=== PATIENT | female | born 1955 | race Caucasian/White ===

== ENCOUNTER 2018-08-01 11:03 | Inpatient (IN) | payer MEDICAID ==
[2018-08-01] MEDS: ASPIRIN 81 MG TAB PO (13:15)
[2018-08-01] MEDS: SOD CHLORIDE 0.9% 1,000 ML IV (13:15)
[2018-08-01 13:16] LABS: ADD MAN DIFF? NO
[2018-08-01 13:18] LABS: WHITE BLOOD COUNT 5.7 10^3/ul (4.8-10.8)
[2018-08-01 13:18] LABS: BASOPHIL # 0.1 10^3/ul (0.0-0.1); BASOPHILS % 0.9 % (0.0-2.0); EOSINOPHILS % 0.5 % (0.0-7.0); HEMATOCRIT 43.9 % (37.0-47.0); HEMOGLOBIN 14.8 g/dl (12.0-16.0); LYMPHOCYTES # 1.5 10^3/ul (0.8-2.9); LYMPHOCYTES % 26.2 % (15.0-51.0); MEAN CORPUSCULAR HEMOGLOBIN 29.7 pg (29.0-33.0); MEAN CORPUSCULAR HGB CONC 33.7 g/dl (32.0-37.0); MEAN CORPUSCULAR VOLUME 88.2 fl (82.0-101.0); MEAN PLATELET VOLUME 10.5 fl (7.4-10.4); MONOCYTE # 0.6 10^3/ul (0.3-0.9); MONOCYTES % 10.6 % (0.0-11.0); NEUTROPHIL # 3.5 10^3/ul (1.6-7.5); NEUTROPHILS % 61.5 % (39.0-77.0); PLATELET COUNT 234 10^3/UL (140-415); RED BLOOD COUNT 4.98 10^6/ul (4.20-5.40)
[2018-08-01 13:21] LABS: ADD UMIC YES; UR ASCORBIC ACID NEGATIVE (NEGATIVE); UR BILIRUBIN (Dip) NEGATIVE (NEGATIVE); UR BLOOD (Dip) 1+ mg/dL (NEGATIVE); UR CLARITY SLIGHTLY CLOUDY (CLEAR); UR COLOR YELLOW (YELLOW); UR GLUCOSE (Dip) NEGATIVE (NEGATIVE); UR KETONES (Dip) NEGATIVE (NEGATIVE); UR LEUKOCYTE ESTERASE (Dip) NEGATIVE Leu/ul (NEGATIVE); UR MUCUS FEW /HPF (NONE SEEN); UR NITRITE (Dip) NEGATIVE (NEGATIVE); UR RBC 0 /HPF (0-5); UR SPECIFIC GRAVITY (Dip) 1.019 (1.003-1.030); UR TOTAL PROTEIN (Dip) NEGATIVE (NEGATIVE); UR UROBILINOGEN (Dip) NEGATIVE (NEGATIVE); UR WBC 2 /HPF (0-5)
[2018-08-01] MEDS: DILTIAZEM 25 MG INJ IV (13:22)
[2018-08-01 13:40] LABS: INR 0.95; PROTIME 12.8 Sec (11.9-14.9)
[2018-08-01 13:41] LABS: PARTIAL THROMBOPLASTIN TIME 26.4 Sec (23.0-35.0)
[2018-08-01] MEDS: FAMOTIDINE 20 MG TAB PO (13:43)
[2018-08-01 13:47] LABS: ALANINE AMINOTRANSFERASE 27 IU/L (13-69); ALBUMIN 4.6 g/dl (3.3-4.9); ALBUMIN/GLOBULIN RATIO 1.27; ALKALINE PHOSPHATASE 80 IU/L (42-121); ANION GAP 8 (5-13); ASPARTATE AMINO TRANSFERASE 36 IU/L (15-46); BILIRUBIN,INDIRECT 0.4 mg/dl (0-1.1); BILIRUBIN,TOTAL 0.4 mg/dl (0.2-1.3); BLOOD UREA NITROGEN 16 mg/dl (7-20); CALCIUM 9.9 mg/dl (8.4-10.2); CARBON DIOXIDE 26 mmol/L (21-31); CHLORIDE 106 mmol/L (97-110); CREATININE 0.61 mg/dl (0.44-1.00); Estimated GFR > 60 mL/min (>60); GLUCOSE 109 mg/dl (70-220); LIPASE 155 U/L (23-300); POTASSIUM 4.4 mmol/L (3.5-5.1); SODIUM 140 mmol/L (135-144); TOTAL PROTEIN 8.2 g/dl (6.1-8.1)
[2018-08-01 13:57] LABS: TROPONIN-I 0.035 ng/ml (0.000-0.120)
[2018-08-01] MEDS ORDERED: MAGNESIUM HYDROXIDE 30ML CUP PO (15:30)
[2018-08-01] MEDS ORDERED: ONDANSETRON 4 MG INJ IV ×2 (15:30)
[2018-08-01] MEDS ORDERED: NACL 0.9% 3 ML SYG IV (15:30)
[2018-08-01] MEDS ORDERED: ACETAMINOPHEN 325 MG TAB PO (15:30)
[2018-08-01] MEDS ORDERED: NITROGLYCERIN (SL) 0.4 MG TAB SL (15:30)
[2018-08-01] MEDS ORDERED: DOCUSATE SODIUM 100 MG CAP PO (15:30)
[2018-08-01] MEDS ORDERED: HYDROCODONE/APAP (5/325) TAB PO (15:30)
[2018-08-01] MEDS ORDERED: ENOXAPARIN 100 MG/ML SYG SC (16:00)
[2018-08-01 16:27] LABS: HEMOGLOBIN A1C 5.5 % (0-5.9)
[2018-08-01] MEDS ORDERED: DILTIAZEM-D5W 125MG/125ML DRIP 125 ML IV (18:30)
[2018-08-01] MEDS: DILTIAZEM (CD) 120 MG CAP PO (18:41)
[2018-08-01] MEDS ORDERED: METOPROLOL 5 MG INJ IV ×2 (21:00)
[2018-08-01] MEDS: ACETAMINOPHEN 325 MG TAB PO (23:30)
[2018-08-02] MEDS: PANTOPRAZOLE (EC) 40 MG TAB PO (05:53)
[2018-08-02 06:19] LABS: ADD MAN DIFF? NO
[2018-08-02 06:28] LABS: WHITE BLOOD COUNT 5.6 10^3/ul (4.8-10.8)
[2018-08-02 06:28] LABS: BASOPHILS % 0.7 % (0.0-2.0); EOSINOPHILS # 0.1 10^3/ul (0.0-0.5); EOSINOPHILS % 1.1 % (0.0-7.0); HEMATOCRIT 43.8 % (37.0-47.0); HEMOGLOBIN 14.5 g/dl (12.0-16.0); LYMPHOCYTES % 36.4 % (15.0-51.0); MEAN CORPUSCULAR HEMOGLOBIN 29.7 pg (29.0-33.0); MEAN CORPUSCULAR HGB CONC 33.1 g/dl (32.0-37.0); MEAN CORPUSCULAR VOLUME 89.8 fl (82.0-101.0); MEAN PLATELET VOLUME 11.1 fl (7.4-10.4); MONOCYTE # 0.6 10^3/ul (0.3-0.9); MONOCYTES % 10.5 % (0.0-11.0); NEUTROPHIL # 2.8 10^3/ul (1.6-7.5); NEUTROPHILS % 51.1 % (39.0-77.0); PLATELET COUNT 238 10^3/UL (140-415); RED BLOOD COUNT 4.88 10^6/ul (4.20-5.40); RED CELL DISTRIBUTION WIDTH 12.7 % (11.5-14.5)
[2018-08-02 07:05] LABS: ANION GAP 10 (5-13); BLOOD UREA NITROGEN 13 mg/dl (7-20); CALCIUM 9.9 mg/dl (8.4-10.2); CARBON DIOXIDE 25 mmol/L (21-31); CHLORIDE 106 mmol/L (97-110); CHOL/HDL RATIO 9.5 RATIO; CHOLESTEROL 268 mg/dl (100-200); CREATININE 0.68 mg/dl (0.44-1.00); Estimated GFR > 60 mL/min (>60); GLUCOSE 99 mg/dl (70-220); HDL CHOLESTEROL 28 mg/dl (35-98); LDL CHOLESTEROL,CALCULATED 209 mg/dl; MAGNESIUM 2.2 mg/dl (1.7-2.5); SODIUM 141 mmol/L (135-144); TRIGLYCERIDES 155 mg/dl (0-149)
[2018-08-02] MEDS: DILTIAZEM 25 MG INJ IV (08:28)
[2018-08-02] MEDS ORDERED: DILTIAZEM (CD) 120 MG CAP PO (09:00)
[2018-08-02] MEDS: DILTIAZEM (CD) 240 MG CAP PO (09:50)
[2018-08-02] MEDS ORDERED: APIXABAN 5 MG TABLET PO (14:30)
[2018-08-02] MEDS: APIXABAN 5 MG TABLET PO ×2 (15:56→21:35)
[2018-08-02] MEDS: ATORVASTATIN 40 MG TAB PO (21:36)
[2018-08-03 05:35] LABS: WHITE BLOOD COUNT 6.4 10^3/ul (4.8-10.8)
[2018-08-03 05:35] LABS: ADD MAN DIFF? NO; BASOPHIL # 0.1 10^3/ul (0.0-0.1); BASOPHILS % 0.8 % (0.0-2.0); EOSINOPHILS # 0.1 10^3/ul (0.0-0.5); EOSINOPHILS % 1.1 % (0.0-7.0); HEMATOCRIT 41.8 % (37.0-47.0); HEMOGLOBIN 14.1 g/dl (12.0-16.0); LYMPHOCYTES # 1.7 10^3/ul (0.8-2.9); LYMPHOCYTES % 26.4 % (15.0-51.0); MEAN CORPUSCULAR HEMOGLOBIN 29.9 pg (29.0-33.0); MEAN CORPUSCULAR HGB CONC 33.7 g/dl (32.0-37.0); MEAN CORPUSCULAR VOLUME 88.6 fl (82.0-101.0); MONOCYTE # 0.7 10^3/ul (0.3-0.9); MONOCYTES % 10.9 % (0.0-11.0); NEUTROPHIL # 3.9 10^3/ul (1.6-7.5); NEUTROPHILS % 60.6 % (39.0-77.0); PLATELET COUNT 256 10^3/UL (140-415); RED BLOOD COUNT 4.72 10^6/ul (4.20-5.40); RED CELL DISTRIBUTION WIDTH 12.9 % (11.5-14.5)
[2018-08-03] MEDS: PANTOPRAZOLE (EC) 40 MG TAB PO (05:48)
[2018-08-03 06:22] LABS: ALBUMIN 4.4 g/dl (3.3-4.9); ANION GAP 9 (5-13); BLOOD UREA NITROGEN 21 mg/dl (7-20); CALCIUM 9.9 mg/dl (8.4-10.2); CARBON DIOXIDE 28 mmol/L (21-31); CHLORIDE 103 mmol/L (97-110); CREATININE 0.82 mg/dl (0.44-1.00); GLUCOSE 101 mg/dl (70-220); MAGNESIUM 2.1 mg/dl (1.7-2.5); PHOSPHORUS 4.6 mg/dl (2.5-4.9); POTASSIUM 3.9 mmol/L (3.5-5.1); SODIUM 140 mmol/L (135-144)
[2018-08-03] MEDS: DILTIAZEM (CD) 240 MG CAP PO (09:10)
[2018-08-03] MEDS: APIXABAN 5 MG TABLET PO ×2 (09:10→20:42)
[2018-08-03] MEDS: ATORVASTATIN 40 MG TAB PO (20:42)
[2018-08-04] MEDS: PANTOPRAZOLE (EC) 40 MG TAB PO (06:22)
[2018-08-04] MEDS: APIXABAN 5 MG TABLET PO ×2 (09:07→21:01)
[2018-08-04] MEDS: DILTIAZEM (CD) 240 MG CAP PO (09:07)
[2018-08-04] MEDS: ATORVASTATIN 40 MG TAB PO (21:01)
[2018-08-05] MEDS: PANTOPRAZOLE (EC) 40 MG TAB PO (06:42)
[2018-08-05] MEDS: APIXABAN 5 MG TABLET PO (08:10)
[2018-08-05] MEDS: DILTIAZEM (CD) 180 MG CAP PO (14:33)
[2018-08-06] MEDS ORDERED: DILTIAZEM (CD) 240 MG CAP PO (09:00)
[2018-08-06] MEDS ORDERED: DILTIAZEM (CD) 180 MG CAP PO (09:00)
== END 2018-08-05 15:56 | disposition home or self-care (01) | DRG 310 ==
LOC: E/R 11:03 → 6WM 15:22
DX: I48.91 Unspecified atrial fibrillation (principal); I42.2 Other hypertrophic cardiomyopathy; E78.5 Hyperlipidemia, unspecified; K80.20 Calculus of gallbladder without cholecystitis without obstruction; K21.9 Gastro-esophageal reflux disease without esophagitis; R10.30 Lower abdominal pain, unspecified
CPT/HCPCS: 36415; 71045; 76700; 80048; 80053; 80061; 80069; 81001; 83036; 83690; 83735; 84443; 84484; 85025; 85610; 85730; 90686; 93005; 93306; 96374; 99285-25; G0378